=== PATIENT | male | born 1960 | race African-American/Black ===

== ENCOUNTER 2022-12-24 16:47 | Emergency (ER) | payer OTHER, MEDICARE ==
[2022-12-24] MEDS ORDERED: fentaNYL 50 mcg/mL 1 mL Vial ONE (17:15)
[2022-12-24] MEDS ORDERED: Ketorolac Tromethamine 30 MG/ML VIAL ONE (18:08)
== END 2022-12-24 18:27 | disposition home or self-care (01) ==
LOC: CSHERS 16:47
DX: S40.012A Contusion of left shoulder, initial encounter (principal); E11.9 Type 2 diabetes mellitus without complications; I10 Essential (primary) hypertension; W01.0XXA Fall on same level from slipping, tripping and stumbling without subsequent striking against object, initial encounter; Z79.899 Other long term (current) drug therapy; Z79.82 Long term (current) use of aspirin
CPT/HCPCS: 73030; 73060; J3010; 96374; 96375; J1885